=== PATIENT | female | born 1990 | race Caucasian/White ===

== ENCOUNTER 2020-02-04 07:42 | Emergency (ER) | payer MEDICAID ==
[~2020-02-04] VITALS: Ht 165.1 cm; Wt 81.6 kg
--- NOTE | 2020-02-04 07:45 | NUR ---
BIBA TAKEN TO BED 12
--- NOTE | 2020-02-04 07:45 | NUR ---
Dr. Calloway evaluating pt at beside.
[2020-02-04 07:48] VITALS: BP 113/70
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
[2020-02-04] MEDS ORDERED: ceFAZolin 1,000 MG VIAL IM ONE (07:50)
[2020-02-04] MEDS ORDERED: fentaNYL 0.05 MG/ML VIAL IM ONE (07:50)
[2020-02-04] MEDS ORDERED: WATER STERILE 10 ML MC ONE (07:55)
--- NOTE | 2020-02-04 08:05 | NUR ---
Pt denies . Is unable to move to provide urine sample at this time due to right hand deformity/pain.
--- NOTE | 2020-02-04 08:20 | NUR ---
RAIL SWITCH OPERATOR WILL COME BACK WITH PORTABLE XRAY
[2020-02-04] MEDS ORDERED: LIDOCAINE MPF 1% 10 MG/ML VIAL INJ ONE (08:25)
--- NOTE | 2020-02-04 08:35 | NUR ---
XRAY AT BEDSIDE
--- NOTE | 2020-02-04 08:37 | NUR ---
DR. KELLY AT BEDSIDE WITH EDUCATION ADMINISTRATOR
[2020-02-04] MEDS ORDERED: KETAMINE 10 MG/ML UD SYR **ER IVP ONE (08:45)
[2020-02-04] MEDS ORDERED: PROPOFOL 200 MG/20 ML VIAL IV ONE ×2 (08:45→09:40)
--- NOTE | 2020-02-04 09:20 | NUR ---
ACTIVE BLEEDING FROM RIGHT HAND DIGITS, DR. KELLY IS AT BEDSIDE, EMT ALSO AT BEDSIDE PLACING SPLINT WITH DR. KELLY
[2020-02-04] MEDS ORDERED: TRANEXAMIC ACID 1,000 MG in NACL 0.9% 50 ML IV STA (09:29)
--- NOTE | 2020-02-04 09:30 | NUR ---
PT PLACED IN FABIRCATED FIBERGLASS SUGAR TONG SPLINT WHILE ERMD PULLED TRACTION ON PT ARM. SPLINT WRAPPED WITH X2 3" ELTON WRAPS, ERMD CHECKED FOR CMS.
--- NOTE | 2020-02-04 09:30 | NUR ---
DR. KELLY AT BEDSIDE WITH XRAY
--- NOTE | 2020-02-04 09:32 | NUR ---
XRAY AT BEDSIDE
--- NOTE | 2020-02-04 09:34 | NUR ---
PHARMACY CALLED FOR TXA
[2020-02-04] MEDS ORDERED: NACL 0.9% 1,000 ML IV ONE ×2 (09:40→11:15)
[2020-02-04] MEDS ORDERED: fentaNYL 0.05 MG/ML VIAL IVP ONE (09:45)
--- NOTE | 2020-02-04 10:00 | NUR ---
NO BLOOD NOTED ON BLANKET UNDER THE RIGHT HAND AT THIS TIME
--- NOTE | 2020-02-04 10:03 | NUR ---
2ND DOSE OF FENTANYL NOT ADMINSTERED AT THIS TIME. PT SLEEPING, APPEARS COMFORTABLE, BP 90/58 AT THIS TIME AND LOWER PREVIOUSLY.
[2020-02-04] MEDS ORDERED: ceFAZolin 1,000 MG VIAL ONE (10:22)
--- NOTE | 2020-02-04 10:25 | NUR ---
CONFIRMED W/ DR. LETICIA GUERRA TO GIVE ANCEF IV AFTER PT HAS RECEIVED ANCEF IM
[2020-02-04] MEDS ORDERED: HYDROcodone/APAP 5/325 MG 1 TAB TAB PO ONE (11:05)
--- NOTE | 2020-02-04 11:12 | NUR ---
BP 86/44. PT AOX4, SPEAKING ON CELLPHONE RIGHT NOW. DR. KELLY NOTIFIED.
--- NOTE | 2020-02-04 11:55 | NUR ---
report to Mayuri MORENO at [facility] ER
--- NOTE | 2020-02-04 12:00 | NUR ---
PT WRIST PLACED IN ULNAR GUTTER SPLINT, SPLINT WAS ADDED ON TO SUGAR TONG SPLINT PER ERMD, SPLINT FABIRCATED OUT OF 3" FIBERGLASS SPLINT AND WRAPPED WITH X2 1" ELTON WRAPS. RN NOTIFIED
--- NOTE | 2020-02-04 12:05 | NUR ---
[facility] AT BEDSIDE. REPORT GIVEN TO [facility]
--- NOTE | 2020-02-04 12:05 | NUR ---
Patient to be transferred to [facility] ER. Is being transferred due to Digital Palmar Artery Injury, Distal radius Fracture and UInar styloid fracture, Open fracture 4th metacarpal, Wrist dislocation. Receiving facility has accepting physician and available space. ER physician has signed transfer form. Patient or responsible alliance party has agreed to transfer and signed form. Patient belongings inventoried and will be sent with patient. Copy of nursing notes, lab reports, EKG, Physicians Orders and X-rays to be sent with patient. Report called to QIANA MORENO at receiving facility. [facility] ambulance service IS AT BEDSIDE.
[2020-02-04 13:01] VITALS: BP 127/69
== END 2020-02-04 12:11 | disposition short-term general hospital (02) ==
LOC: MED 07:42 → EDBD 07:42 → MED 12:11
DX: S52.591A Other fractures of lower end of right radius, initial encounter for closed fracture (principal); S52.611A Displaced fracture of right ulna styloid process, initial encounter for closed fracture; S62.394B Other fracture of fourth metacarpal bone, right hand, initial encounter for open fracture; S63.094A Other dislocation of right wrist and hand, initial encounter; F17.200 Nicotine dependence, unspecified, uncomplicated; V49.88XA Car occupant (driver) (passenger) injured in other specified transport accidents, initial encounter; Y93.89 Activity, other specified; Y92.89 Other specified places as the place of occurrence of the external cause; Y99.8 Other external cause status
CPT/HCPCS: 25600; 73080; 73110; 73130; 90471; 90715; 96365; 96372; 96375; 99291; J0690; J2001; J2704; J3010; J3490; J7030; J7060; Q0092